=== PATIENT | female | born 1960 | race African-American/Black ===

== ENCOUNTER 2020-11-19 21:05 | Inpatient (IN) | payer MEDICARE ==
[~2020-11-19] VITALS: Ht 152.4 cm; Wt 105.1 kg
[2020-11-19 21:07] VITALS: BP 176/119
[2020-11-19 21:36] LABS: HEMATOCRIT 36.1 % (37.0-47.0); HEMOGLOBIN 12.3 gm/dL (12.0-15.0); MCHC 34.1 g/dL (28.0-37.0); MCV 76.3 fL (80.0-100.0); PLATELET COUNT 531 thou/uL (150-400); RBC 4.73 mil/uL (4.20-5.00); RDW 22.1 % (10.5-14.5); WBC 13.4 thou/uL (4.0-11.0)
[2020-11-19 21:40] LABS: ANION GAP 7 mmol/L (7-16); BUN 17 mg/dL (7-18); CALCIUM 10.1 mg/dL (8.5-10.1); CHLORIDE 101 mmol/L (98-107); CO2 32 mmol/L (21-32); CREATININE 1.2 mg/dL (0.6-1.0); GLUCOSE 192 mg/dL (74-106); POTASSIUM 5.2 mmol/L (3.5-5.1); SODIUM 140 mmol/L (136-145)
[2020-11-19 21:46] LABS: ALBUMIN 3.5 g/dL (3.4-5.0); DIRECT BILIRUBIN < 0.1 mg/dL (<0.1-0.2); LIPASE 238 U/L (73-393); SGOT 20 U/L (15-37); SGPT 31 U/L (14-59); TOTAL BILIRUBIN 0.3 mg/dL (0.2-1.0)
[2020-11-19 22:53] LABS: ABSOLUTE NEUTROPHILS 7.2 thou/uL (1.4-8.2)
[2020-11-19 22:54] LABS: ANISOCYTOSIS 3+; PLATELET ESTIMATE INCREASED; POIKILOCYTOSIS 2+; POLYCHROMASIA 1+
[2020-11-20] VITALS (8 sets, daily range): BP systolic 113–162; BP diastolic 10–87
[2020-11-20 00:20] LABS: BE(vivo) 4.5 mmol/L (-2 to +3); HCO3 29.6 mmol/L (22.0-26.0); PCO2 46.6 mmHg (35.0-45.0); PO2 97.2 mmHg (80.0-100.0); pH 7.421 (7.360-7.450); sO2 97.5 % (92.0-98.0)
[2020-11-20 01:28] LABS: URINE BILIRUBIN NEGATIVE (Negative); URINE BLOOD NEGATIVE (Negative); URINE CLARITY CLEAR; URINE COLOR YELLOW; URINE GLUCOSE-RANDOM* NEGATIVE (Negative); URINE KETONES NEGATIVE (Negative); URINE LEUKOCYTES-REFLEX NEGATIVE (Negative); URINE NITRITE-REFLEX NEGATIVE (Negative); URINE PROTEIN (DIPSTICK) NEGATIVE (Negative); URINE UROBILINOGEN 0.2 E.U./dl (0.2-1.0)
[2020-11-20 05:20] LABS: HEMATOCRIT 36.9 % (37.0-47.0); HEMOGLOBIN 11.5 gm/dL (12.0-15.0); MCH 24.3 pg (26.0-34.0); MCHC 31.1 g/dL (28.0-37.0); MCV 78.1 fL (80.0-100.0); RBC 4.72 mil/uL (4.20-5.00); RDW 21.9 % (10.5-14.5); WBC 9.9 thou/uL (4.0-11.0)
--- NOTE | 2020-11-20 05:31 | NUR ---
ADMIT PT ADMITTED TO ROOM 351 VIA ED FOR SOB, HAS HX OF COPD AND SARCOIDOSIS. WEARS 2 LITERS O2 AT HOME BUT STATED SOB GOT PROGRESSIVELY WORSE OVER LAST 2 DAYS. VSS, SKIN C/D/I. OIENTED TO ROM CALLIGHT SYSTEM AND POC.
[2020-11-20 05:37] LABS: CALCIUM 9.4 mg/dL (8.5-10.1); CREATININE 1.2 mg/dL (0.6-1.0)
[2020-11-20 05:55] LABS: POTASSIUM 5.5 mmol/L (3.5-5.1)
--- NOTE | 2020-11-20 09:39 | NUR ---
Nutrition: Consult for "Pre-Dm." Admit early this am with COPD exacerbation. Other hx of HTN, sarcoidosis. K 5.5, BUN 23, Cr 1.2, albumin 3.5. Meds: insulin, solumedrol, IVF. BG 373. RN reported pt ate well this am, est 100%. Pt denied any acute nutrition concerns. BMI 45. Pt would like some information regarding diet and pre-DM; RD to visit this afternoon. Pt may benefit from CHO controlled diet and checking A1C. Assess at low nutrition risk.
--- NOTE | 2020-11-20 14:21 | NUR ---
ASSESSMENT: CM REVIEWED CHART AND MET WITH PATIENT. PT IS ALERT AND ORIENTED X4. PT WAS ADMITTED FOR SOB, ACUTE ON CHRONIC RESPIRATORY FAILURE, COPD EXACERBATION. PT WAS TESTED FOR COVID 19 AND NEGATIVE. PT REPORTS LIVING IN A DUPLEX WITH HER BOYFRIEND. PT REPORTS IF SHE ENTERS THROUGH THE GARAGE THERE IS ABOUT 12 STEPS WITH HANDRAILS TO THE MAIN LEVEL. PT REPORTS NO ADDITIONAL STEPS. PT REPORTS HAVING A WHEELCHAIR THAT SHE USES AT TIMES FOR AMBULATION DUE TO HER PAIN AND SOB. PT REPORTS SHE ALSO HAS A ROLLATER WALKER. PT REPORTS WEARING 2L CONTINUOUS OXYGEN THROUGH [facility]. PT REPORTS SHE HAD HH IN THE PAST BUT UNSURE THE AGENCY. PT REPORTS SHE DOES NOT CURRENTLY HAVE A PCP HERS IS RETIRED. CM ENCOURAGED PATIENT TO CONTACT HER INSURANCE TO SEE WHO IS IN NETWORK. CM ALSO PROVIDED PATIENT WITH CARE PROVIDER LIST FOR HERE AT [facility]. PT REQUESTING HH AT DISCHARGE. CM SPOKE WITH DR. GREENBERG WHO HAS AGREED TO FOLLOW FOR HOME HEALTH ORDERS. PT HAS NO PREFERENCE OF HH AGENXY. REFERR[facility] SENT TO [facility]. PULM IS FOLLOWING. PT REMAINS ON IV ANBX AND STEROIDS. NO WEEKEND DISCHARGE LIKELY.
--- NOTE | 2020-11-20 16:52 | EKG ---
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
[2020-11-21] MEDS ORDERED: ZANAFLEX4 M2 PO (02:51)
[2020-11-21 03:32] VITALS: BP 148/72
[2020-11-21 03:49] VITALS: BP 106/64
--- NOTE | 2020-11-21 07:17 | NUR ---
PROGRESS PT A/O X4 UP AD PRUDENCIO REPORTS BURNING TO BILATERAL LATERAL LEGS AND A HEADACHE. HYDROCODONE GIVEN X 2 Q6HRS PRN, PT REQUESTED ZANAFLEX FOR HEADACHE OF 10 4 MG ONETIME DOSE OBTAINED AND, TYLENOL GIVEN WITH, AND A CUP OF COFFEE PT REPORTED RELIEF OF HEADACHE. VOIDING QS HAD A BM. IVF'S INFUSING ORDERED LACTIC ACID VERY LABILE UP TO 2 TO 4.7 AND NOW BACK TO NORMAL. CONTINUE TO MONITOR.
[2020-11-21 07:22] VITALS: BP 134/73
[2020-11-21 11:23] VITALS: BP 134/89
[2020-11-21 15:16] VITALS: BP 152/84
--- NOTE | 2020-11-21 16:34 | NUR ---
assumed care of pt at 0700. pt aox4 anxious at times. reports pain improved after home regimen resumed. up to bsc. 2L nasal cannula. calls appropriately. tachycardic at times. asking many questions about arrangements to get in pain clinic.
[2020-11-21 20:12] VITALS: BP 135/81
[2020-11-22 04:25] VITALS: BP 109/64
--- NOTE | 2020-11-22 07:22 | NUR ---
progress pt up ad michelle pain controlled with hydrocodone q4hs reports burning pain in both les and chronic back pain. lungs clear but diminished no cough noted. ivf's continue pt has good inake, accuchecks and ssi continue. rt tx's as needed. continue poc.
[2020-11-22 07:33] VITALS: BP 126/89
[2020-11-22 15:42] VITALS: BP 144/71
--- NOTE | 2020-11-22 16:58 | NUR ---
ASSUMD PATIENT CARE AT 0700. A/O X4. UP AD PRUDENCIO. AMBULATED IN ROOM. PAIN MED NEEDS. NO SOB NOTED. PROGRESSING TOWARDS POC GOALS.
[2020-11-22 19:35] VITALS: BP 124/63
[2020-11-23 03:43] VITALS: BP 119/70
--- NOTE | 2020-11-23 04:11 | NUR ---
Medicated for pain with good relief. She stated she slept really well last night. Tolerating room air well though she said she still gets short of breath with exertion but a lot better than when she first came in. Up ad michelle in room with steady gait. Making progress towards care plan goals.
[2020-11-23 06:08] LABS: CALCIUM 9.2 mg/dL (8.5-10.1); CREATININE 0.8 mg/dL (0.6-1.0); POTASSIUM 4.6 mmol/L (3.5-5.1)
[2020-11-23 07:23] VITALS: BP 126/89
[2020-11-23] MEDS ORDERED: HYDROCODON-ACE1 EAC7 PO (11:21)
[2020-11-23] MEDS ORDERED: ACETAMINOPHEN325 M1 PO (11:21)
[2020-11-23] MEDS ORDERED: METFORMIN HCL500 M3 PO (11:21)
[2020-11-23] MEDS ORDERED: LYRICA 75 MG CA75 MG PO (11:21)
[2020-11-23] MEDS ORDERED: MUCINEX600 MG PO (11:21)
[2020-11-23] MEDS ORDERED: PULMICORT0.5 MG/21 INH (11:21)
[2020-11-23] MEDS ORDERED: LEVOFLOXACIN500 MG PO (11:21)
[2020-11-23] MEDS ORDERED: PREDNISONE 20 M20 M1 PO (11:21)
--- NOTE | 2020-11-23 13:14 | NUR ---
DISCHARGE NOTE: SW reviewed chart and spoke with nursing and attending physician. Pt is medically stable for discharge home today. Orders written for HH services. SW met with pt at bedside to discuss discharge plan. Pt states she has contacted [facility] to arrange an appt to establish primary care with Dr. Carmona. Office to send pt ppwk and schedule first appt. Pt would like to follow up with Pulm Physician at [facility]. Pt agreeable with SW arranging an apt to establish care and arrange for outpatient sleep study. Pt agreeable with HH services. Pt will have transportation home when discharged and has home O2 in place. AMANDA scheduled pulm follow up appt for , 12/[address] Nieves. This info with the physician office address and contact info placed in pt's discharge summary. AMANDA faxed d/c ppwk to [facility] and notified Evy in intake. Contact info for HH placed in pt's discharge summary. No additional SW needs identified at this time, but is available to assist should needs arise.
[2020-11-23 13:22] VITALS: BP 113/57
[2020-11-23 13:40] VITALS: BP 113/57
[2020-11-23 15:56] VITALS: BP 113/57
== END 2020-11-23 14:27 | disposition home health service (06) | DRG 193 ==
LOC: ER 21:05 → 3W 11-20 02:10 → EROBS 11-20 02:10 → 3W 11-20 02:59
PROVIDERS: Emergency Medicine; Internal Medicine; Nurse Practitioner; Nurse Practitioner Family; ADMIT Hospitalist; ATTEND Hospitalist
PROC: 5A09357 Assistance with Respiratory Ventilation, Less than 24 Consecutive Hours, Continuous Positive Airway Pressure (ICD-10-PCS; principal; 2020-11-20)
PROC: 5A09357 Assistance with Respiratory Ventilation, Less than 24 Consecutive Hours, Continuous Positive Airway Pressure (ICD-10-PCS; 2020-11-21)
PROC: 5A09357 Assistance with Respiratory Ventilation, Less than 24 Consecutive Hours, Continuous Positive Airway Pressure (ICD-10-PCS; 2020-11-22)
DX: J18.9 Pneumonia, unspecified organism (principal); N17.0 Acute kidney failure with tubular necrosis; J96.21 Acute and chronic respiratory failure with hypoxia; J96.22 Acute and chronic respiratory failure with hypercapnia; Z68.42 Body mass index [BMI] 45.0-49.9, adult; E87.2 Acidosis; E66.2 Morbid (severe) obesity with alveolar hypoventilation; E11.9 Type 2 diabetes mellitus without complications; I10 Essential (primary) hypertension; F41.9 Anxiety disorder, unspecified; F17.210 Nicotine dependence, cigarettes, uncomplicated; J43.9 Emphysema, unspecified; D86.9 Sarcoidosis, unspecified; F32.9 Major depressive disorder, single episode, unspecified; G89.4 Chronic pain syndrome; Z20.822 Contact with and (suspected) exposure to COVID-19; Z88.8 Allergy status to other drugs, medicaments and biological substances; Z88.1 Allergy status to other antibiotic agents; Z91.013 Allergy to seafood
CPT/HCPCS: 10879